=== PATIENT | female | born 1985 | race Caucasian/White ===

== ENCOUNTER 2021-05-30 20:44 | Emergency (ER) | payer OTHER, SELFPAY ==
--- NOTE | ~2021-05-30 | XR_ITS ---
EXAMINATION: XR chest 2V DATE: 05/30/2021 21:11 INDICATION: Left chest tightness radiating to the left arm. Shortness of breath. TECHNIQUE: PA and lateral views of the chest were obtained. COMPARISON: CT dated 10/01/2018 FINDINGS: The lungs remain clear with no focal airspace opacities, pulmonary edema, pleural effusion or pneumot horax. The cardiomediastinal silhouette is normal. Bilateral breast implants. Mild thoracic spondylos is. IMPRESSION: 1. No acute cardiopulmonary disease. Reviewed, dictated and finalized at location . [facility]
--- NOTE | 2021-05-30 20:46 | ECG_ITS ---
Measurements Intervals [place] Rate: 126 P: 56 CA: 132 QRS: 28 QRSD: 82 T: 31 QT: 300 QTc: 435 Interpretive Statements SINUS TACHYCARDIA BORDERLINE T WAVE ABNORMALITY- ANTERIOR LEADS BASELINE ARTIFACT- III, V3, V5-V6 ABNORMAL ECG Electronically Signed On 05-31-2021 7:42:26 [employer] by Lucian Swartz D.O.
[2021-05-30 20:56] VITALS: BP 147/99; PULSE 102; RESP 18; TEMP 37.4; O2SAT 100
[2021-05-30 20:57] LABS: Basophils Absolute Auto 0.1 K/mm3 (0.0-0.1); Basophils Percent Auto 0.5 % (0.2-1.2); Eosinophils Absolute Auto 0.2 K/mm3 (0-0.3); Eosinophils Percent Auto 1.2 % (0-4.4); Hematocrit 39.9 % (37.0-47.0); Hemoglobin 13.6 g/dL (12.0-15.0); Immature Granulocyte Absolute 0.04 K/mm3 (0.00-0.031); Immature Granulocyte Percent A 0.3 % (0-0.5); Lymphocytes Absolute Auto 3.47 K/mm3 (0.9-3.2); Lymphocytes Percent Auto 26.8 % (18.3-44.2); Mean Corpuscular HGB Conc 34.1 g/dl (32-36); Mean Corpuscular Hemoglobin 30.9 pg (26-34); Mean Corpuscular Volume 90.7 fl (80-100); Mean Platelet Volume 9.2 fl (7.4-10.4); Monocytes Absolute Auto 1.5 K/mm3 (0.1-0.6); Monocytes Percent Auto 11.5 % (2.6-8.5); Neutrophils Absolute Auto 7.7 K/mm3 (1.3-6.7); Neutrophils Percent Auto 59.7 % (45.5-73.1); Platelet Count Result 246 k/mm3 (150-375); Red Cell Distribution Width 12.4 % (11.5-14.5); White Blood Count 12.9 K/mm3 (4.5-10.0)
[2021-05-30 21:07] LABS: Alanine Aminotransferase 20 U/L (4-35); Albumin Level 4.9 g/dL (3.5-5.1); Alkaline Phosphatase 57 U/L (38-126); Anion Gap 7 mmol/L (8-16); Aspartate Amino Transferase 27 U/L (14-36); Bilirubin,Total 0.4 mg/dL (0.2-1.3); Blood Urea Nitrogen 13 mg/dL (7-17); Calcium 9.6 mg/dL (8.4-10.2); Carbon Dioxide 26 mmol/L (22-30); Chloride 101 mmol/L (98-107); Estimated CRCL calculation 62 ml/min; Estimated Glomerular Filt Rate > 60; Glucose 119 mg/dL (65-110); Lipase 90 U/L (23-300); Partial Thromboplastin Time 23.9 SECONDS (22.3-36.8); Potassium 4.1 mmol/L (3.4-5.0); Prothrombin Time 12.7 Seconds (11.1-14.7); Sodium 134 mmol/L (137-145)
[2021-05-30 21:19] LABS: Troponin I < 0.012 ng/mL (0.000-0.034)
--- NOTE | 2021-05-31 00:14 | ED.CHESTPAIN ---
HPI - Chest Pain General Chief Complaint: Chest Pain Stated Complaint: chest pain Time Seen by Provider: 05/31/21 00:06 Source: patient Mode of arrival: ambulatory Limitations: no limitations History of Present Illness HPI narrative: Patient is a 35-year-old female complaining of chest pain, left chest, sharp, 7 out of 10, worse when taking a deep breath started tonight. Patient states that she was driving when it suddenly occurred. Patient denies any shortness of breath, cough, chest congestion, abdominal pain, nausea, vomiting, diaphoresis, fever or chills. Related Data Allergies Allergy/AdvReac Type Severity Reaction Status Date / Time acetaminophen AdvReac Unknown Verified 01/02/17 17:34 hydrocodone AdvReac Unknown Verified 01/02/17 17:34 Review of Systems Review of Systems: All systems reviewed & are unremarkable except as noted in HPI and below Constitutional: Constitutional: Denies body ache(s), Denies chills, Denies excessive sweating, Denies fatigue, Denies fever(s), Denies headache(s), Denies lethargy, Denies malaise, Denies weakness and Denies weight loss Eyes: Eyes: Denies blurry vision, Denies change in vision and Denies loss of vision ENT: Denies dizziness, Denies ear discharge, Denies headache(s), Denies lip swelling, Denies epistaxis, Denies nasal congestion, Denies neck pain, Denies throat swelling and Denies tongue swelling Cardiovascular: Cardiovascular: Denies diaphoresis, Denies rapid heart rate, Denies edema, Denies irregular heart rhythm, Denies lightheadedness, Denies palpitations, Denies dyspnea and Denies dyspnea on exertion Respiratory: Respiratory: Denies chest congestion, Denies cough, Denies hemoptysis, Denies dyspnea and Denies dyspnea on exertion Gastrointestinal: Gastrointestinal: Denies abdominal pain, Denies melena, Denies hematochezia, Denies diarrhea, Denies nausea, Denies vomiting and Denies hematemesis Musculoskeletal: Musculoskeletal: Denies abnormal gait, Denies deformity, Denies joint swelling, Denies limited range of motion, Denies neck pain and Denies numbness Neurologic: Denies Abnormal speech present, Denies abnormal gait, Denies confusion, Denies dizziness, Denies headache(s), Denies focal weakness, Denies loss of vision, Denies numbness, Denies Other visual disturbances, Denies Sensory deficit (Neuro) and Denies weakness Psychiatric: Psychiatric: Denies confusion, Denies depression, Denies auditory hallucinations, Denies homicidal ideation and Denies suicidal ideation Endocrine: Endocrine: Denies cold intolerance, Denies excessive sweating, Denies fatigue, Denies heat intolerance and Denies palpitations Hematologic/Lymphatic: Hematologic/Lymphatic: Denies easy bleeding and Denies easy bruising Allergic/Immunologic: Allergic/Immunologic: Denies lip swelling, Denies throat swelling and Denies tongue swelling PMFSH Comments Past medical history: None Family history: Negative for coronary disease or [place] Social history: Non-smoker, occasional EtOH use, no drug use Exam Const: General: cooperative, healthy appearing, comfortable, no acute distress, well developed, alert and awake; No confusion Orientation/consciousness: oriented to person, oriented to place, oriented to time, patient oriented x3 and No confusion Limitations: no limitations HENMT: Head: normal to inspection, normocephalic and atraumatic Ears: hearing grossly normal bilaterally, TM normal on the right and TM normal on the left General nose exam: Normal external nose present, Normal nares present and No nasal discharge present Face and sinus: normal facial exam Mouth: Yes Normal oral and palatal mucosa present, Yes lip normal, Yes tongue normal and Yes oropharynx normal Throat: posterior oropharynx normal, tonsils normal and uvula midline Eyes: General: appearance normal, both eyes and all related structures Pupils: Equal, round and reactive pupils present EOM: EOMs intact bilaterally Neck: Neck: normal visual inspect
[2021-05-31 00:18] VITALS: BP 113/56; PULSE 84; RESP 18; O2SAT 100
[2021-05-31 00:39] LABS: Troponin I < 0.012 ng/mL (0.000-0.034)
[2021-05-31 00:42] LABS: D Dimer < 0.22 ug/mL (<0.48)
[2021-05-31 01:46] VITALS: BP 119/59; PULSE 69; RESP 18; O2SAT 100
== END 2021-05-31 01:47 | disposition home or self-care (01) ==
PROVIDERS: Emergency Provider Emergency Medicine
DX: R09.1 Pleurisy (principal); R00.0 Tachycardia, unspecified; R94.31 Abnormal electrocardiogram [ECG] [EKG]
CPT/HCPCS: 36415; 71046; 80053; 83690; 84484; 85025; 85380; 85610; 85730; 93005; 99284

== ENCOUNTER 2022-08-21 08:49 | Emergency (ER) | payer OTHER, SELFPAY ==
[2022-08-21 08:56] VITALS: BP 114/72; PULSE 87; RESP 16; TEMP 36.6; O2SAT 100
--- NOTE | 2022-08-21 09:53 | ED.URI ---
HPI - URI/Sore Throat General Chief Complaint: Upper Respiratory Infection Stated Complaint: Sore Throat Time Seen by Provider: 08/21/22 09:53 Source: patient, RN notes reviewed and old records reviewed Mode of arrival: ambulatory Limitations: no limitations History of Present Illness HPI Narrative: 36-year-old female who presents to [facility] with complaints of sore throat since yesterday with fevers up to 101F last pm, reports that son diagnosed with strep this past weekend. Patient reports 3 day history of nausea without emesis, denies any diarrhea or any body aches. Patient reports that she has taken Ibuprofen and also some cold medication OTC. MD elicited complaint: fever, sore throat and other (nausea) Pertinent past history: other (positive exposure to strep) Onset (ago): day(s) (since last night) Pain scale (0-10): 6 Able to tolerate fluids by mouth: Yes Treatments prior to arrival: ibuprofen and cold medicine Related Data Allergies Allergy/AdvReac Type Severity Reaction Status Date / Time hydrocodone AdvReac Unknown Unknown Verified 08/21/22 09:13 Review of Systems Review of Systems: CONSTITUTIONAL: Reports malaise, chills, sweats, or fever. EYES: Denies visual changes, redness, or discharge. ENT: Reports rhinorrhea, congestion, sinus pain, no otalgia positive sore throat. CARDIOVASCULAR: Denies chest pain, palpitations, or edema. RESPIRATORY: Reports cough.? Denies dyspnea. GASTROINTESTINAL: Denies abdominal pain,positive for nausea,no vomiting, diarrhea SKIN: Denies rash or itching. MUSCULOSKELETAL: Denies myalgia. NEUROLOGIC: Denies headache. All systems reviewed & are unremarkable except as noted in HPI and below PMFSH Past Medical History Medical History UTI (urinary tract infection) Surgical History Surgical History (Updated 08/23/22 @ 07:14 by Alberta Ruiz NP) History of appendectomy S/P removal of left ovary Social History Social History (Updated 08/23/22 @ 07:11 by Alberta Ruiz NP) Smoking status: Never smoker Alcohol intake: current Alcohol use details: social Substance use type: does not use Living arrangements: with family Gender identity (if verbalized by the patient): Female Comments At time of signature, agree with nursing past medical, surgical, social and family history. There is no relevant family history pertinent to the presenting complaint Exam Narrative: GENERAL: Well-appearing, well-nourished, and in no acute distress. HEAD: Normocephalic EYES: PERRLA, conjunctivae clear ENT: Nares clear, turbinates edematous and erythematous, clear discharge. Mucous membranes moist. TM pearly landon with dull light reflex bilaterally; no tragal tenderness. Oropharynx erythematous without lesions. Tonsils enlarged and without exudate, no drooling, no hoarseness, no trismus, uvula midline. NECK: Supple. No lymphadenopathy CHEST: Clear to auscultation, breath sounds equal. No wheezing, rhonchi, rales, or stridor. No respiratory distress, speaks in full sentences.SAO2 100% on room air HEART: Regular rate and rhythm. No murmur heard. SKIN: Warm, dry, no rash. NEURO: Alert and oriented x3. PSYCH: Normal mood and affect Course Course Emergency Course: Patient is aware of diagnosis, understands and agrees to treatment plan.? Anticipatory guidance given.? Patient agrees to follow-up as directed and is aware of reasons to seek care at the emergency department. Portions of this record may have been created with voice recognition software Level of Care: Express Care Visit Vital Signs Vital signs: Vital Signs Temperature 36.6 C 08/21/22 08:56 Pulse Rate 87 08/21/22 08:56 Respiratory Rate 16 08/21/22 08:56 Blood Pressure 114/72 08/21/22 08:56 Pulse Oximetry 100 08/21/22 08:56 Oxygen Delivery Room Air 08/21/22 08:56 Temperature 36.6 C 08/21/22 08:56 Pulse Rat
== END 2022-08-21 10:09 | disposition home or self-care (01) ==
PROVIDERS: Emergency Provider Registered Nurse; PCP Physician Assistant
DX: J02.9 Acute pharyngitis, unspecified (principal)
CPT/HCPCS: 87081; 87880; 99213; G0463

== ENCOUNTER 2024-07-05 14:54 | Outpatient (CLI) | payer OTHER, SELFPAY ==
--- NOTE | ~2024-07-05 | CT_ITS ---
EXAMINATION: CT abdomen pelvis wo/w con DATE: 07/05/2024 15:31 INDICATION: Hydronephrosis TECHNIQUE: Computed tomography (CT) of the abdomen and pelvis was performed without intravenous contr ast. CT of the abdomen and pelvis was then performed with a total of 130 mL Omnipaque-350 intravenous contrast using a double-bolus technique for simultaneous opacification of the renal parenchyma and r enal collecting system. Automated exposure control and iterative reconstruction technique were employ ed. The dose-length product was 819.52 mGy-cm. COMPARISON: CT dated 10/01/2018 FINDINGS: Lung bases are clear. Heart size is normal. No pericardial or pleural effusion. Bilateral breast impl ants. Liver, gallbladder, spleen, pancreas and bilateral adrenal glands are normal. No urolithiasis. There is mild right hydronephrosis with transition point at the ureteropelvic junction without eviden t obstructing stone or mass. The bilateral renal collecting systems and ureters are opacified in thei r entirety with no urothelial irregularities or filling defects. Bladder is normal. Postoperative josselin nges at the tip the cecum likely related to prior appendectomy. Bowels are otherwise unremarkable. An teverted uterus and bilateral adnexa are unremarkable. No free intraperitoneal gas or fluid. No patho logically enlarged abdominal or pelvic lymphadenopathy. Bones are unremarkable. IMPRESSION: 1. Likely mild right UPJ obstruction with mild right hydronephrosis without urolithiasis or other obs tructing mass or urothelial irregularity. Reviewed, dictated and finalized at location [facility]. [facility] IMPRESSION: 1. Likely mild right UPJ obstruction with mild right hydronephrosis without uro lithiasis or other obstructing mass or urothelial irregularity.
== END 2024-07-05 14:55 | disposition home or self-care (01) ==
LOC: MICIMG 14:55
PROVIDERS: PCP Physician Assistant; Visit Provider Urology
DX: N13.30 Unspecified hydronephrosis (principal)
CPT/HCPCS: 74178; Q9967